=== PATIENT | female | born 1985 | race Caucasian/White ===

== ENCOUNTER → 2018-03-05 | Outpatient (CLI) | payer MEDICAID ==
--- NOTE | 2018-03-05 13:36 | Diagnostic Imaging Report ---
PROCEDURE: CT sinuses without contrast TECHNIQUE: Multiple contiguous axial images were obtained through the sinuses without the use of intravenous contrast. Coronal and sagittal reformations were then performed. INDICATION: Chronic sinus infections and sinus pressure. FINDINGS: The frontal sinuses clear. Ethmoid air cells and sphenoid sinus are clear. Bilateral maxillary sinuses are clear. The mastoids appear to be well aerated. No mucosal thickening or air-fluid levels are seen. Ostiomeatal units are patent bilaterally. IMPRESSION: No evidence of sinusitis. Dictated by: Dictated on workstation # [id number]
== END ==
LOC: RAD 11:31 → EDBD 11:31
PROVIDERS: ATTEND Otolaryngology Otolaryngology/Facial Plastic Surgery
DX: J32.0 Chronic maxillary sinusitis (principal); J31.0 Chronic rhinitis
CPT/HCPCS: 70486